=== PATIENT | male | born 1955 | race Caucasian/White ===

== ENCOUNTER 2021-10-22 10:54 | Inpatient (IN) ==
[2021-10-22 11:06] VITALS: BMI 26.8
[2021-10-22 11:08] LABS: ABG BASE EXCESS 6.5 mmol/L (-2.0-2.0); ABG HCO3 28.9 mmol/L (22-26)
--- NOTE | 2021-10-22 11:08 | DR.SOBA ---
HPI Time Seen Time Seen by Provider: 10/22/21 11:08 Primary Care Physician Primary Care Physician: None HPI Comment HPI Comment: PATIENT IS 66YR OLD MALE IN ER WITH INCREASING SOB, GENERALIZED WEAKNESS TIMES 3 WEEKS. TESTED POSITIVE FOR COVID 19 VIRUS 9 DAYS. PATIENT PROGRESSIVELY GETTING WORSE. LOW GRADE FEVER IN ER. Complaints Chief Complaint Doctors Comments: SOB, COUGH, CONGESTION AND GENERALIZED WEAKNESS TIMES 3 WEEKS. COVID POSITIVE 9 DAYS AGO. Chief Complaint:: Pt reports 3 weeks of worsening sxs: sob, cough, weakness, tested Covid+ on 10/13/21 and dx with pna, has not been on abx, initial O2 sats in triage 86%, up to 88%. COVID-19 Coronavirus risk:travel/contact w/high risk person: Yes Has patient experienced Coronavirus symptoms: Yes Coronavirus symptoms experienced: Coughing and Shortness of Breath Reviewed Nurses Notes Reviewed: Yes Source History Provided: Patient Mode of Arrival Mode of Arrival: Wheelchair Timing Onset of Chief Complaint: 10/01/21 Duration Duration: Weeks Context Onset:: At Rest PE Risk Factors:: None History of:: None Currently on:: Neither Prehospital Care:: Injected B2 Modifying Factors Worsens:: Exertion Improves:: Rest Associated Signs and Symptoms Associated Signs and Symptoms: Cough and Nasal Congestion If Chest Pain Quality: Pleuritic Location: Substernal If Cough Cough: Productive and Yellow PMH PMH Past Medical History: Yes Past Medical History: Depression and Dyslipidemia Past Medical History Comment: BPH Past Surgical History: Yes Surgical History: Tonsillectomy Past Surgical History Comment: inguinal hernia repair Family History History of Family Medical Conditions: Yes Social History Alcohol Use: Rarely Do you use any recreational Drugs:: No Lives Where: Home Travel Risk Coronavirus risk:travel/contact w/high risk person: Yes Has patient experienced Coronavirus symptoms: Yes Coronavirus symptoms experienced: Coughing and Shortness of Breath Infectious screening In the last 2 months have you had wt loss of >10#?: NO Have you had fever, night sweats or hemotysis?: No Have you traveled outside the country in the last 6 months?: No Isolation: Droplet ROS Review of Systems Constitutional: See HPI, Fever, Weakness and Fatigue Eyes: No Symptoms Reported and See HPI ENTM: See HPI, Nose Discharge and Nose Congestion Respiratoy: See HPI, Productive Cough and Short of Breath; negative Wheezing Cardiovascular: See HPI and Chest Pain (TIGHTNESS, PLEURITIC.) Gastrointestinal/Abdominal: No Symptoms Reported and See HPI; negative Abdominal Pain, Diarrhea and Vomiting Genitourinary: No Symptoms Reported and See HPI Neurological: See HPI, Headache and Weakness; negative Dizziness Musculoskeletal: No Symptoms Reported, See HPI and Muscle Pain Integumentary: No Symptoms Reported and See HPI; negative Rash and Juandice Hematologic/Lymphatic: No Symptoms Reported and See HPI; negative Easy Bruising Endocrine: No Symptoms Reported and See HPI; negative Increased Thirst and Increased Urine Psychiatric: No Symptoms Reported and See HPI All Other Systems: Reviewed and Negative PE Vital Signs Vitals: Temperature 99.1 F Pulse Rate 80 Respiratory Rate 24 Blood Pressure 123/68 O2 Sat by Pulse Oximetry 95 General Limitations: No Limitations General Appearance: Alert and In No Apparent Distress Head Head Exam: Normal Inspection Eyes Eye exam: Normal Appearance; negative Scleral Icterus and Conjunctival Injection ENT ENT Exam: Normal External Ear Exam; negative Normal Oropharynx and TM's Normal Bilaterally Neck Neck Exam: Normal Inspection and Trachea Midline; negative Tenderness Chest Chest Inspection: Normal Inspection and Symmetric Chest Wall Rise; negative Tend erness Respiratory Respiratory Exam: Normal Lung Sounds Bilat; negative Accessory Muscle Use, Chest Wall Tenderness and Respiratory Distress Respiratory Exam: Bilateral: Rhonchi and Lower: Rhonchi Cardiovascular Cardiovascular Exam: Regular Rate, Normal Rhythm and Normal Heart Sounds; negative Diastolic Murmur Abdominal Exam Abdominal Exam: Normal Inspection, Normal Bowel Sounds and Soft; negative Tenderness Extremities Extremities Exam: Normal Inspection and Normal Capillary Refill Back Back Exam: Normal Inspection; negative (R) CVA Tenderness and (L) CVA Tenderness Neurologic Neurological Exam: Alert and Oriented X3; negative Motor Sensory Deficit Psychiatric Psychiatric Exam: Normal Affect and Normal Mood Skin Skin Exam: Dry MDM Differential Diagnosis Differential Diagnosis: Bronchitis, Pneumonia, Pneumothorax, Respiratory Ins ufficiency, Sinusitis and URI COURSE Treatment Treatment: SEE ORDERS. DUO NEB AND SOLUMEDROL 125MG TV IN ER. LABS AND XRAY DISCUSSED. PATIENT WILL BE ADMITTED FOR FURTHER MANAGEMENT. Reevaluation 1st: Improved (SOB IMPOVING.) Consultation Consultation Comments: DISCUSSED PATIENT WITH DR. BETTS. HE WILL ADMIT PATIENT. Education/Counseling Education/Counseling: Patient Educated On: Diagnosis and Needs for Follow Up ROR Labs Reviewed Laboratory Results Reviewed?: Yes Result Diagrams: 10/26/21 05:31 10/26/21 05:31 Laboratory: 10/22/21 11:20 Blood Blood Culture - Final 10/22/21 11:15 Blood Blood Culture - Final WBC 6.6 X10^3/uL (3.6-10.0) 10/22/21 11:20 RBC 4.37 X10^6/uL (4.7-6.0) L 10/22/21 11:20 Hgb 13.9 g/dL (13.5-18.0) 10/22/21 11:20 Hct 38.5 % (42.0-54.0) L 10/22/21 11:20 MCV 88.2 fL (80.0-100.0) 10/22/21 11:20 MCH 31.9 pg (27.0-34.0) 10/22/21 11:20 MCHC 36.2 g/dL (33.0-35.0) H 10/22/21 11:20 RDW 13.8 % (11.6-16.5) 10/22/21 11:20 Plt Count 314 X10^3/uL (150.0-450.0) 10/22/21 11:20 MPV 7.3 fL (7.4-11.0) L 10/22/21 11:20 Neut % (Auto) 78.3 % (42.0-75.0) H 10/22/21 11:20 Lymph % (Auto) 11.1 % (21.0-51.0) L 10/22/21 11:20 [place] % (Auto) 10.3 % (0.0-13.0) 10/22/21 11:20 Eos % (Auto) 0.0 % (0.9-2.9) L 10/22/21 11:20 Baso % (Auto) 0.3 % (0.2-1.0) 10/22/21 11:20 Neut # (Auto) 5.2 x10^3/uL (2.2-4.8) H 10/22/21 11:20 Lymph # (Auto) 0.7 X10^3/uL (1.3-2.9) L 10/22/21 11:20 [place] # (Auto) 0.7 x10^3/uL (0.3-0.8) 10/22/21 11:20 Eos # (Auto) 0.0 x10^3/uL (0.0-0.2) 10/22/21 11:20 Baso # (Auto) 0.0 X10^3/uL (0.0-0.1) 10/22/21 11:20 Absolute Nucleated RBC 0.2 /100WBC 10/22/21 11:20 D-Dimer 1.34 ug/ml (0.0-0.57) H* 10/22/21 11:20 Sample Site Rbra 10/22/21 11:00 ABG pH 7.550 (7.35-7.45) H 10/22/21 11:00 ABG pCO2 33.0 mmHg (35.0-45.0) L 10/22/21 11:00 ABG pO2 45.0 mmHg (80.0-100.0) L* 10/22/21 11:00 ABG HCO3 28.9 mmol/L (22-26) H 10/22/21 11:00 ABG O2 Saturation 87.0 % (90-100) L 10/22/21 11:00 ABG Base Excess 6.5 mmol/L (-2.0-2.0) H 10/22/21 11:00 Jaspreet Test N/a 10/22/21 11:00 A-a Gradient 63.0 mmHg 10/22/21 11:00 FiO2 21.0 10/22/21 11:00 Blood Gas Comments Pt inna well elj 10/22/21 11:00 Sodium 131 mmol/L (136-145) L 10/22/21 11:20 Corrected Sodium TNP 10/22/21 11:20 Potassium 3.9 mmol/L (3.5-5.1) 10/22/21 11:20 Chloride 95 mmol/L (98-107) L 10/22/21 11:20 Carbon Dioxide 29.0 mmol/L (21-32) 10/22/21 11:20 BUN 17 mg/dL (7-18) 10/22/21 11:20 Creatinine 0.86 mg/dL (0.70-1.30) 10/22/21 11:20 Est GFR (MDRD) Af Amer > 60 (>60) 10/22/21 11:20 Est GFR (MDRD) Non-Af > 60 (>60) 10/22/21 11:20 Glucose 104 mg/dL (65-99) H 10/22/21 11:20 Lactic Acid 1.2 mmol/L (0.4-2.0) 10/22/21 11:20 Calcium 8.4 mg/dL (8.5-10.1) L 10/22/21 11:20 Corrected Calcium 9.6 mg/dL (8.5-10.1) 10/22/21 11:20 Total Bilirubin 0.60 mg/dL (0.2-1.0) 10/22/21 11:20 AST 83 Units/L (15-37) H 10/22/21 11:20 ALT 124 Units/L (12-78) H 10/22/21 11:20 Alkaline Phosphatase 86 Units/L (46-116) 10/22/21 11:20 B-Natriuretic Peptide 28.3 pg/mL (0-79) 10/22/21 11:20 Total Protein 7.1 g/dL (6.4-8.2) 10/22/21 11:20 Albumin 2.5 g/dL (3.4-5.0) L 10/22/21 11:20 Globulin 4.6 g/dL (2.5-4.5) H 10/22/21 11:20 Albumin/Globulin Ratio 0.5 Ratio (1.1-2.1) L 10/22/21 11:20 SARS-CoV-2 (PCR) Positive (NEGATIVE) A 10/22/21 14:19 Influenza Type A (PCR) Negative (NEGATIVE) 10/22/21 14:19 Influenza Type B (PCR) Negative (NEGATIVE) 10/22/21 14:19 RSV (PCR) Negative (NEGATIVE) 10/22/21 14:19 XRAY XRAY Interpreted by: Radiologist (REPORT NOTED AND DISCUSSED WITH PATIENT.) and Self EKG Rate: 84 [place]: Normal Rhythm: NSR Block: None Hypertrophy: None ST: Normal Opioid Opioid Risk Tool Age (Josue box if 16-45): No Total: 0 Total Score Risk Category: Low Risk Copyright: [facility] predicting aberrant behaviors Diagnosis Discharge Problem: Hypoxia, COVID-19 virus infection Pneumonia Qualifiers: Pneumonia type: due to unspecified organism Laterality: bilateral Lung location: lower lobe of lung Qualified Code(s): J18.9 - Pneumonia, unspecified organism Instructions Instructions: How to Use an Incentive Spirometer Home Oxygen Use, Adult Antibiotic Medicine, Adult Hypoxia Prone Position Therapy 10 Things You Can Do to Manage Your COVID-19 Symptoms at Home - [facility] [place] (04/02/2020) Bleeding Precautions When on Anticoagulant Therapy, Adult How to Use a Nebulizer, Adult COVID-19: Quarantine vs. Isolation - [facility] [place] [place] (09/18/2020) You've Been Prescribed an Antibiotic in the Hospital for an Infection - CDC Forms: Excuse From Work or School Precautions for COVID19 [facility] Social Distancing
[2021-10-22 11:46] LABS: BASOPHILS % (AUTO) 0.3 % (0.2-1.0); HEMATOCRIT 38.5 % (42.0-54.0); HEMOGLOBIN 13.9 g/dL (13.5-18.0); LYMPHOCYTES # (AUTO) 0.7 X10^3/uL (1.3-2.9); LYMPHOCYTES % (AUTO) 11.1 % (21.0-51.0); MEAN CORPUSCULAR HEMOGLOBIN 31.9 pg (27.0-34.0); MEAN CORPUSCULAR HGB CONC 36.2 g/dL (33.0-35.0); MEAN CORPUSCULAR VOLUME 88.2 fL (80.0-100.0); MEAN PLATELET VOLUME 7.3 fL (7.4-11.0); MONOCYTES # (AUTO) 0.7 x10^3/uL (0.3-0.8); MONOCYTES % (AUTO) 10.3 % (0.0-13.0); NEUTROPHILS # (AUTO) 5.2 x10^3/uL (2.2-4.8); NEUTROPHILS % (AUTO) 78.3 % (42.0-75.0); RED BLOOD COUNT 4.37 X10^6/uL (4.7-6.0); RED CELL DISTRIBUTION WIDTH 13.8 % (11.6-16.5); WHITE BLOOD COUNT 6.6 X10^3/uL (3.6-10.0)
[2021-10-22 11:55] LABS: ALANINE AMINOTRANSFERASE 124 Units/L (12-78); ALBUMIN 2.5 g/dL (3.4-5.0); ALKALINE PHOSPHATASE 86 Units/L (46-116); ASPARTATE AMINO TRANSFERASE 83 Units/L (15-37); BLOOD UREA NITROGEN 17 mg/dL (7-18); CALCIUM 8.4 mg/dL (8.5-10.1); CHLORIDE 95 mmol/L (98-107); COR CA(FOR HYPOALB) 9.6 mg/dL (8.5-10.1); CREATININE 0.86 mg/dL (0.70-1.30); SODIUM 131 mmol/L (136-145); TOTAL PROTEIN 7.1 g/dL (6.4-8.2); eGFR NON BLACK RACES > 60 (>60)
--- NOTE | 2021-10-22 11:55 | RAD ---
Chest AP portableIndication: DyspneaCOMPARISONNone availableFINDINGSThere is patchy bilateral pulmonary opacities, somewhat peripherally located. Heart size is prominent. There is no pneumothorax. Small effusion difficult to exclude. Scarring seen in the right upper lung versus nodule. Monitor leads obscure detailIMPRESSIONPatchy bilateral peripheral pulmonary opacities could reflect sequela of viral pneumonitis. Other infectious or inflammatory etiologies not excluded. Follow-up to resolution to exclude underlying lesion recommended, particularly given somewhat nodular area in the right upper lungElectronically signed by: MYLES IRWIN (Oct 22, 2021 11:53:44)
[2021-10-22 12:18] LABS: LACTIC ACID 1.2 mmol/L (0.4-2.0)
[2021-10-22] MEDS ORDERED: SOLU-Medrol 125 MG VIAL IVP ONE (12:32)
[2021-10-22] MEDS ORDERED: DUONEB 0.5 MG/3 MG (3 mL) NEB ONE ×2 (12:32→12:55)
[2021-10-22] MEDS ORDERED: NS 100 ML IV 100 ML ONE (12:36)
[2021-10-22] MEDS ORDERED: SOLU-Medrol 125 MG VIAL ONE (12:42)
--- NOTE | 2021-10-22 13:22 | CT ---
HISTORYSOBSTUDYCTA CHESTCOMPARISONChest radiograph from same day.TECHNIQUECTA chest protocol with axial images from the thoracic inlet to upper abdomen with IV contrast. Sagittal and coronal reformats and MIP images were created. Automated exposure control was utilized.FINDINGSThe visualized thyroid gland appears benign. Moderately atherosclerotic normal caliber thoracic aorta. Pulmonary artery is normal in caliber centrally. No filling defect is identified to suggest pulmonary embolism. The heart is normal in size. No pericardial effusion. Conspicuous number of nonenlarged lymph nodes in the mediastinum. Small hiatal hernia. 1.9 cm left renal cyst. Left-sided gynecomastia. There is a hemangioma at L1. No acute osseous abnormality.The trachea and mainstem bronchi appear patent. Moderate bilateral ground-glass opacities in a pattern typical for COVID 19. There are few airspace opacities in the dependent lower lobes. Trace bilateral pleural effusions. No pneumothorax.IMPRESSIONModerate bilateral ground-glass and some airspace opacities in a pattern typical for COVID 19. Negative for PE. Other incidental findings as above.Electronically signed by: Spencer Schmitz (Oct 22, 2021 13:20:54)
[2021-10-22] MEDS ORDERED: LEXAPRO PO SCH (16:32)
[2021-10-22] MEDS ORDERED: CRESTOR TAB 10 MG PO SCH (16:32)
[2021-10-22] MEDS ORDERED: REMDESIVIR 200 MG in NS 250 ML IV 250 ML IV ONE (16:32)
[2021-10-22] MEDS: DUONEB 0.5 MG/3 MG (3 mL) NEB SCH ×2 (16:45→21:05)
[2021-10-22] MEDS ORDERED: LEXAPRO ONE (16:59)
[2021-10-22] MEDS ORDERED: PHARMACY CONSULT - IVERMECTIN XX SCH (17:00)
[2021-10-22 17:02] LABS: BASOPHILS % (AUTO) 0.5 % (0.2-1.0); HEMATOCRIT 37.6 % (42.0-54.0); HEMOGLOBIN 13.6 g/dL (13.5-18.0); LYMPHOCYTES # (AUTO) 0.4 X10^3/uL (1.3-2.9); LYMPHOCYTES % (AUTO) 7.4 % (21.0-51.0); MEAN CORPUSCULAR HEMOGLOBIN 31.9 pg (27.0-34.0); MEAN CORPUSCULAR HGB CONC 36.2 g/dL (33.0-35.0); MEAN CORPUSCULAR VOLUME 88.1 fL (80.0-100.0); MEAN PLATELET VOLUME 7.1 fL (7.4-11.0); MONOCYTES # (AUTO) 0.3 x10^3/uL (0.3-0.8); MONOCYTES % (AUTO) 4.9 % (0.0-13.0); NEUTROPHILS # (AUTO) 5.2 x10^3/uL (2.2-4.8); NEUTROPHILS % (AUTO) 87.2 % (42.0-75.0); RED BLOOD COUNT 4.27 X10^6/uL (4.7-6.0)
[2021-10-22] MEDS: IVERMECTIN PO SCH (17:06)
[2021-10-22 17:10] LABS: ALANINE AMINOTRANSFERASE 143 Units/L (12-78); ALBUMIN 2.5 g/dL (3.4-5.0); ALKALINE PHOSPHATASE 94 Units/L (46-116); ASPARTATE AMINO TRANSFERASE 98 Units/L (15-37); BLOOD UREA NITROGEN 14 mg/dL (7-18); CALCIUM 8.4 mg/dL (8.5-10.1); CARBON DIOXIDE 27.4 mmol/L (21-32); CHLORIDE 96 mmol/L (98-107); COR CA(FOR HYPOALB) 9.6 mg/dL (8.5-10.1); COR NA(FOR HYPERGLY) 134 mmol/L (136-145); CREATININE 0.89 mg/dL (0.70-1.30); SODIUM 133 mmol/L (136-145); TOTAL PROTEIN 7.2 g/dL (6.4-8.2); eGFR NON BLACK RACES > 60 (>60)
[2021-10-22] MEDS ORDERED: NS 250 ML IV 250 ML IV PRN (19:31)
[2021-10-22] MEDS ORDERED: ZOSYN VIAL 3.375 GRAMS IV ONE (19:49)
[2021-10-22] MEDS ORDERED: NS 100 ML IV + SPIKE MINIBAG* 100 ML IV ONE (19:49)
[2021-10-22] MEDS: ZINC SULFATE PO SCH (20:11)
[2021-10-22] MEDS: LUVOX PO SCH (20:11)
[2021-10-22] MEDS: ASCORBIC ACID INJ MULTI-DOSE VIAL 1,500 MG in NS 100 ML IV 100 ML IV SCH (20:11)
[2021-10-22] MEDS: PEPCID TAB 40 MG PO SCH (20:11)
[2021-10-22] MEDS: LOVENOX INJ 30 MG SYR SC SCH (20:12)
[2021-10-22] MEDS: VIBRAMYCIN PO SCH (20:12)
[2021-10-22] MEDS ORDERED: PULMICORT NEB TX 0.5 MG NEB SCH (21:00)
[2021-10-22] MEDS ORDERED: BROVANA IN SCH (21:00)
[2021-10-22] MEDS ORDERED: MELATONIN PO SCH (21:00)
[2021-10-22] MEDS: PERIACTIN TAB 4 MG PO SCH (21:04)
[2021-10-22] MEDS: SOLU-Medrol 125 MG VIAL IVP SCH (21:04)
[2021-10-22] MEDS: ZOSYN VIAL 3.375 GRAMS 3.375 G in NS 100 ML IV + SPIKE MINIBAG* 100 ML IV SCH (21:05)
[2021-10-22] MEDS: PULMICORT NEB TX 0.5 MG NEB SCH (21:05)
[2021-10-23] MEDS: ASCORBIC ACID INJ MULTI-DOSE VIAL 1,500 MG in NS 100 ML IV 100 ML IV SCH ×3 (03:00→15:00)
[2021-10-23 05:30] LABS: ABG BASE EXCESS 3.9 mmol/L (-2.0-2.0); ABG HCO3 27.7 mmol/L (22-26)
[2021-10-23 05:37] LABS: BASOPHILS % (AUTO) 0.3 % (0.2-1.0); HEMATOCRIT 36.1 % (42.0-54.0); HEMOGLOBIN 13.1 g/dL (13.5-18.0); LYMPHOCYTES # (AUTO) 0.5 X10^3/uL (1.3-2.9); MEAN CORPUSCULAR HGB CONC 36.3 g/dL (33.0-35.0); MEAN CORPUSCULAR VOLUME 88.2 fL (80.0-100.0); MEAN PLATELET VOLUME 7.5 fL (7.4-11.0); MONOCYTES # (AUTO) 0.3 x10^3/uL (0.3-0.8); MONOCYTES % (AUTO) 10.3 % (0.0-13.0); NEUTROPHILS # (AUTO) 2.4 x10^3/uL (2.2-4.8); NEUTROPHILS % (AUTO) 74.4 % (42.0-75.0); RED CELL DISTRIBUTION WIDTH 13.7 % (11.6-16.5); WHITE BLOOD COUNT 3.2 X10^3/uL (3.6-10.0)
[2021-10-23 05:47] LABS: ALANINE AMINOTRANSFERASE 149 Units/L (12-78); ALBUMIN 2.2 g/dL (3.4-5.0); ALKALINE PHOSPHATASE 88 Units/L (46-116); ASPARTATE AMINO TRANSFERASE 80 Units/L (15-37); BLOOD UREA NITROGEN 13 mg/dL (7-18); CALCIUM 8.5 mg/dL (8.5-10.1); CARBON DIOXIDE 27.8 mmol/L (21-32); CHLORIDE 103 mmol/L (98-107); COR CA(FOR HYPOALB) 9.9 mg/dL (8.5-10.1); COR NA(FOR HYPERGLY) 141 mmol/L (136-145); CREATININE 0.83 mg/dL (0.70-1.30); SODIUM 139 mmol/L (136-145); TOTAL PROTEIN 6.6 g/dL (6.4-8.2); eGFR NON BLACK RACES > 60 (>60)
[2021-10-23] MEDS: PERIACTIN TAB 4 MG PO SCH ×2 (05:59→14:59)
[2021-10-23] MEDS: ZOSYN VIAL 3.375 GRAMS 3.375 G in NS 100 ML IV + SPIKE MINIBAG* 100 ML IV SCH ×2 (05:59→14:59)
[2021-10-23] MEDS: SOLU-Medrol 125 MG VIAL IVP SCH ×2 (05:59→14:59)
--- NOTE | 2021-10-23 06:40 | RAD ---
HISTORYCOVID+STUDYCHEST, [address] radi[address] and CT chest from 1 day prior.TECHNIQUEAP view of the chestFINDINGSCardiac and mediastinal contours are within normal limits. No significant change in moderate bilateral airspace and interstitial opacities. No definite pleural effusion or pneumothorax.IMPRESSIONNo significant change.Electronically signed by: Spencer Schmitz (Oct 23, 2021 06:39:03)
[2021-10-23 08:14] LABS: ABG ALLEN TEST POS
[2021-10-23] MEDS: DUONEB 0.5 MG/3 MG (3 mL) NEB SCH ×3 (08:20→16:45)
[2021-10-23] MEDS: PULMICORT NEB TX 0.5 MG NEB SCH (08:20)
[2021-10-23] MEDS ORDERED: VITAMIN A PO SCH (09:00)
[2021-10-23] MEDS ORDERED: VITAMIN D (1.25MG) PO SCH (09:00)
[2021-10-23] MEDS: LUVOX PO SCH (09:35)
[2021-10-23] MEDS: VIBRAMYCIN PO SCH (09:35)
[2021-10-23] MEDS: TRICOR TAB 160 MG PO SCH (09:35)
[2021-10-23] MEDS: IVERMECTIN PO SCH (09:35)
[2021-10-23] MEDS: PEPCID TAB 40 MG PO SCH (09:36)
[2021-10-23] MEDS: ZINC SULFATE PO SCH (09:36)
[2021-10-23] MEDS: LOVENOX INJ 30 MG SYR SC SCH (09:36)
--- NOTE | 2021-10-23 11:13 | DR.H&P ---
H&P - History & Physical for Day of: H&P Date: 10/22/21 - Chief Complaint Chief Complaint: COUGH, SHORNESS OF BREATH, WEAKNESS - History of Present Illness History of Present Illness: IS A 66 YEAR OLD WHITE MALE WHO PRESENTED TO THE ER WITH REPORTS OF SHORTNESS OF BREATH, COUGH, WEAKNESS, AND DECREASED OXYGEN SATURATIONS. PATIENT REPORTS TESTING POSITIVE FOR COVID ON 10/13/21. HE REPORTS THAT HIS OXYGEN SATURATIONS AT HOME HAVE DROPPED INTO THE 80s. HIS PMH INCLUDES DEPRESSION, DYSLIPIDEMIA, BPH, AND INGUINAL HERNIA REPAIR. ON ARRIVAL TO THE HOSPITAL, HIS VITALS WERE 99.1-90-19-86%, 137/76. HE WAS PLACED ON NASAL CANNULA AT 6LPM. SATURATIONS INCREASED TO 91%. LABS WERE OBTAINED. WBC 6.6, RBC 4.37, HGB 13.9, HCT 38.5, D-DIMER 1.34, SODIUM 131, POTASSIUM 3.9, BUN 17, CREATININE 0.86, GLUCOSE 104, CALCIUM 8.4, AST 83, ALT 124, ALBUMIN 2.5, GLOBULIN 4.6, CRP 159.50. COVID-19 POSITIVE. INFLUENZA AND RSV NEGATIVE. BLOOD CULTURES WERE SET UP. AN EKG WAS OBTAINED AND REVEALED: SINUS RHYTHM WITH HR 84. A CHEST XRAY WAS OBTAINED AND REVEALED: Patchy bilateral peripheral pulmonary opacities could reflect sequela of viral pneumonitis. Other infectious or inflammatory etiologies not excluded. Follow-up to resolution to exclude underlying lesion recommended, particularly given somewhat nodular area in the right upper lung. A CHEST CTA WAS OBTAINED AND REVEALED: Moderate bilateral ground-glass and some airspace opacities in a pattern typical for COVID 19. Negative for PE. IN THE ER, HE WAS GIVEN A DUONEB X 1, SOLU-MEDROL 125MG IV X 1, REMDESIVIR 200MG IV X 1. HE WAS ADMITTED TO THE HOSPITAL FOR FURTHER EVALUATION AND TREATMENT OF PNEUMONIA DUE TO COVID-19 AND HYPOXIA. HE WAS STARTED ON NORMAL SALINE AT KVO, ZOSYN 3.375G IV TID, LEVAQUIN 500MG IV DAILY, REMDESIVIR 100MG IV DAILY, ASCORBIC ACID 1500MG IV Q6H, DUONEBS QID, PULMICORT NEBS BID, SOLU-MEDROL 80MG IV Q8H, PERIACTIN 8MG PO TID, LOVENOX 30MG SC BID, VITAMIN D 50,000 UNITS PO DAILY, FLUVOXAMINE 50MG PO BID, PEPCID 40MG PO BID, TRICOR 160MG PO DAILY, IVERMECTIN 24MG PO DAILY, ZINC 220MG PO BID. WE PLAN TO FOLLOW UP WITH AM LABS AND CHEST XRAY AND CONTINUE TO MONITOR. TIME SPENT ON CLINICAL ASSESSMENT, REVIEWING LABS AND IMAGING, DECISION MAKING, AND DOCUMENTATION WAS GREATER THAN 45 MINUTES. - Past Medical History Past Medical History: Dyslipidemia, Depression Additional Medical History: BPH - Past Surgical History Surgical History: Tonsillectomy, Other Additional Surgical History: HERNIA REPAIR - Family History Family Medical History: Diabetes Mellitus, [place], Hypertension - Social History Does patient currently use any type of tobacco product: No Have you used tobacco products in the last 12 months: No Type of Tobacco Use: None Does any household member use tobacco: No Alcohol Use: Rarely Drug Use: None - Medications Home Medications: Sulfa (Sulfonamide Antibiotics) [SULFA] Allergy (Verified 10/22/21 11:44) CONTINUE taking the following medications escitalopram oxalate [Lexapro] 10 mg PO ONCE 10/22/21 [History] rosuvastatin [Crestor] 10 mg PO ONCE 10/22/21 [History] tadalafil [Cialis] 5 mg PO ONCE 10/22/21 [History] - Review of Systems Constitutional: Weakness Eyes: No Symptoms Reported ENT: No Symptoms Reported Respiratory: Cough, Shortness of Breath Cardiovascular: No Symptoms Reported Gastrointestinal: No Symptoms Reported Genitourinary: No Symptoms Reported Musculoskeletal: No Symptoms Reported Skin: No Symptoms Reported Neurological: Weakness - Physical Exam Vital Signs: Temperature 97.9 F Pulse Rate 78 Respiratory Rate 27 Blood Pressure 125/75 O2 Sat by Pulse Oximetry 87 Oriented: Normal Eyes: Normal Ear: Normal Nose: Normal Throat: Normal Respiratory: Rhonchi Throughout Cardiovascular: Normal : Normal Auscultation: Bowel Sounds: Normal Palpation: Normal Tenderness: Normal Skin: Normal Musculoskeletal: Normal Psychiatric: Normal Mood Description: Calm Affect: Normal Speech Pattern: Clear - Assessment/Plan (1) Pneumonia due to COVID-19 virus Status: Acute Plan: ADMIT, SUPPLEMENTAL OXYGEN, IV FLUIDS, REMDESIVIR, IV ANTIBIOTICS, IV STEROIDS, NEBULIZER TREATMENTS, IMMUNE SUPPLEMENTS (2) Hypoxia Status: Acute - Allergies Allergies/Adverse Reactions: Allergies Allergy/AdvReac Type Severity Reaction Status Date / Time Sulfa (Sulfonamide Allergy Verified 10/22/21 11:44 Antibiotics) [SULFA]
[2021-10-23] MEDS: LEVAQUIN PREMIX IV 500 MG 500 MG/100 ML BAG IV SCH (12:26)
[2021-10-23] MEDS ORDERED: LEXAPRO ONE (17:05)
[2021-10-23] MEDS ORDERED: CRESTOR TAB 10 MG PO ONE (17:05)
[2021-10-23] MEDS ORDERED: LEXAPRO PO ONE (17:08)
[2021-10-23] MEDS ORDERED: DUONEB 0.5 MG/3 MG (3 mL) NEB ONE (20:55)
[2021-10-23] MEDS ORDERED: PULMICORT NEB TX 0.5 MG NEB ONE (20:55)
[2021-10-23] MEDS ORDERED: PEPCID TAB 40 MG PO ONE (21:00)
[2021-10-23] MEDS ORDERED: ZINC SULFATE PO ONE (21:00)
[2021-10-23] MEDS ORDERED: NS 100 ML IV + SPIKE MINIBAG IV ONE (21:00)
[2021-10-23] MEDS ORDERED: LUVOX PO ONE (21:00)
[2021-10-23] MEDS ORDERED: VITAMIN C PO ONE (21:00)
[2021-10-23] MEDS ORDERED: LOVENOX INJ 30 MG SYR SC ONE (21:00)
[2021-10-23] MEDS ORDERED: ZOSYN VIAL 3.375 GRAMS IV ONE (21:00)
[2021-10-23] MEDS ORDERED: PERIACTIN TAB 4 MG PO ONE (22:00)
[2021-10-23] MEDS ORDERED: SOLU-Medrol 125 MG VIAL IVP ONE (22:00)
[2021-10-24] MEDS ORDERED: VITAMIN A PO SCH (09:00)
[2021-10-24] MEDS ORDERED: DUONEB 0.5 MG/3 MG (3 mL) NEB ONE ×2 (09:20→13:25)
[2021-10-24] MEDS ORDERED: PULMICORT NEB TX 0.5 MG NEB ONE (09:20)
[2021-10-24 13:11] LABS: ALANINE AMINOTRANSFERASE 124 Units/L (12-78); ALBUMIN 2.1 g/dL (3.4-5.0); ALKALINE PHOSPHATASE 74 Units/L (46-116); ASPARTATE AMINO TRANSFERASE 45 Units/L (15-37); BLOOD UREA NITROGEN 13 mg/dL (7-18); CALCIUM 8.3 mg/dL (8.5-10.1); CARBON DIOXIDE 27.2 mmol/L (21-32); CHLORIDE 105 mmol/L (98-107); COR CA(FOR HYPOALB) 9.8 mg/dL (8.5-10.1); COR NA(FOR HYPERGLY) 141 mmol/L (136-145); CREATININE 0.89 mg/dL (0.70-1.30); SODIUM 139 mmol/L (136-145); TOTAL PROTEIN 6.1 g/dL (6.4-8.2); eGFR NON BLACK RACES > 60 (>60)
[2021-10-24 13:33] LABS: WHITE BLOOD COUNT 12.2 X10^3/uL (3.6-10.0)
[2021-10-24 13:34] LABS: BASOPHILS % (AUTO) 0.2 % (0.2-1.0); HEMATOCRIT 34.6 % (42.0-54.0); HEMOGLOBIN 12.2 g/dL (13.5-18.0); LYMPHOCYTES # (AUTO) 0.7 X10^3/uL (1.3-2.9); LYMPHOCYTES % (AUTO) 5.7 % (21.0-51.0); MEAN CORPUSCULAR HEMOGLOBIN 30.8 pg (27.0-34.0); MEAN CORPUSCULAR HGB CONC 35.1 g/dL (33.0-35.0); MEAN CORPUSCULAR VOLUME 87.8 fL (80.0-100.0); MEAN PLATELET VOLUME 7.9 fL (7.4-11.0); MONOCYTES # (AUTO) 0.7 x10^3/uL (0.3-0.8); MONOCYTES % (AUTO) 5.4 % (0.0-13.0); NEUTROPHILS # (AUTO) 10.8 x10^3/uL (2.2-4.8); NEUTROPHILS % (AUTO) 88.7 % (42.0-75.0); RED BLOOD COUNT 3.95 X10^6/uL (4.7-6.0); RED CELL DISTRIBUTION WIDTH 13.8 % (11.6-16.5)
[2021-10-24] MEDS: ASCORBIC ACID INJ MULTI-DOSE VIAL 1,500 MG in NS 100 ML IV 100 ML IV SCH ×5 (14:16→20:32)
[2021-10-24] MEDS: PERIACTIN TAB 4 MG PO SCH ×4 (14:16→21:40)
[2021-10-24] MEDS: SOLU-Medrol 125 MG VIAL IVP SCH ×3 (14:17→21:40)
[2021-10-24] MEDS: ZOSYN VIAL 3.375 GRAMS 3.375 G in NS 100 ML IV + SPIKE MINIBAG* 100 ML IV SCH ×4 (14:17→21:40)
[2021-10-24] MEDS ORDERED: AYR NASAL DROPS PRN (14:18)
--- NOTE | 2021-10-24 14:32 | RAD ---
HISTORYFollow-up COVID-19STUDYChest AP [id number]/21/2022FINDINGSHear t size is normal. Zora are normal. Lungs are mildly hyperinflated. Diffuse bilateral interstitial and peripheral upper and lower lobe infiltrates are unchanged considering a difference in film technique. No pleural effusion or pneumothorax is identified. Bony thorax is unremarkable.IMPRESSIONNo significant change from the prior examinationElectronically signed by: ANIKET BATES (Oct 24, 2021 14:30:23)
[2021-10-24] MEDS: PEPCID TAB 40 MG PO SCH ×3 (15:56→20:33)
[2021-10-24] MEDS: LUVOX PO SCH ×3 (15:56→20:33)
[2021-10-24] MEDS: LOVENOX INJ 30 MG SYR SC SCH ×3 (15:56→20:32)
[2021-10-24] MEDS: ZINC SULFATE PO SCH ×3 (16:23→20:32)
[2021-10-24] MEDS: IVERMECTIN PO SCH (16:25)
[2021-10-24] MEDS: LEVAQUIN PREMIX IV 500 MG 500 MG/100 ML BAG IV SCH (16:25)
[2021-10-24] MEDS: LEXAPRO PO SCH (16:25)
[2021-10-24] MEDS: VITAMIN D3 125 mcg (5,000 UNITS) PO SCH (16:26)
[2021-10-24] MEDS: TRICOR TAB 160 MG PO SCH (16:26)
--- NOTE | 2021-10-24 16:32 | PCM.PROG ---
Progress Note Progress Note for Day of Date of Exam: 10/24/21 Subjective Subjective: Patient reports he is feeling a little better but still having SOB. No new problems overnight. Hb 122, K 3.4, Na 139, Cr 0.89, GLU 173, WBC 12.2. Past Medical Family Social History Past Med/Fam/Surg Hx: No changes since H&P Allergies: Allergies Sulfa (Sulfonamide Antibiotics) [SULFA] Allergy (Verified 10/22/21 11:44) Review of Systems ROS: No change since H&P Vital Signs and I&O's Vital Signs: Temperature 97.7 F Pulse Rate 84 Respiratory Rate 19 Blood Pressure 116/59 O2 Sat by Pulse Oximetry 89 Intake and Output: Intake & Output 10/22/21 10/23/21 10/24/21 10/25/21 11:59 11:59 11:59 11:59 Intake Total 1050 / 1050 800 / 800 Output Total 800 / 800 Balance 250 / 250 800 / 800 Physical Exam Oriented: Normal Eyes: Normal Ear: Normal Nose: Normal Throat: Normal Respiratory: Generalized, Wheezes and Rhonchi Cardiovascular: Normal : Normal Auscultation: Bowel Sounds: Normal Tenderness: Normal Skin: Normal Musculoskeletal: Normal Psychiatric: Normal Mood Description: Calm Affect: Normal Speech Pattern: Clear Laboratory and Diagnostics Result Diagrams: 10/24/21 04:54 10/24/21 04:54 Labs: 10/22/21 11:20 Blood Blood Culture - Preliminary 10/22/21 11:15 Blood Blood Culture - Preliminary Laboratory WBC 12.2 X10^3/uL (3.6-10.0) H D 10/24/21 04:54 RBC 3.95 X10^6/uL (4.7-6.0) L 10/24/21 04:54 Hgb 12.2 g/dL (13.5-18.0) L 10/24/21 04:54 Hct 34.6 % (42.0-54.0) L 10/24/21 04:54 MCV 87.8 fL (80.0-100.0) 10/24/21 04:54 MCH 30.8 pg (27.0-34.0) 10/24/21 04:54 MCHC 35.1 g/dL (33.0-35.0) H 10/24/21 04:54 RDW 13.8 % (11.6-16.5) 10/24/21 04:54 Plt Count 425 X10^3/uL (150.0-450.0) 10/24/21 04:54 MPV 7.9 fL (7.4-11.0) 10/24/21 04:54 Neut % (Auto) 88.7 % (42.0-75.0) H 10/24/21 04:54 Lymph % (Auto) 5.7 % (21.0-51.0) L 10/24/21 04:54 [place] % (Auto) 5.4 % (0.0-13.0) 10/24/21 04:54 Eos % (Auto) 0.0 % (0.9-2.9) L 10/24/21 04:54 Baso % (Auto) 0.2 % (0.2-1.0) 10/24/21 04:54 Neut # (Auto) 10.8 x10^3/uL (2.2-4.8) H 10/24/21 04:54 Lymph # (Auto) 0.7 X10^3/uL (1.3-2.9) L 10/24/21 04:54 [place] # (Auto) 0.7 x10^3/uL (0.3-0.8) 10/24/21 04:54 Eos # (Auto) 0.0 x10^3/uL (0.0-0.2) 10/24/21 04:54 Baso # (Auto) 0.0 X10^3/uL (0.0-0.1) 10/24/21 04:54 Absolute Nucleated RBC 0.0 /100WBC 10/24/21 04:54 D-Dimer 1.34 ug/ml (0.0-0.57) H* 10/22/21 11:20 Sample Site Rr 10/23/21 05:28 ABG pH 7.470 (7.35-7.45) H 10/23/21 05:28 ABG pCO2 38.0 mmHg (35.0-45.0) 10/23/21 05:28 ABG pO2 116.0 mmHg (80.0-100.0) H 10/23/21 05:28 ABG HCO3 27.7 mmol/L (22-26) H 10/23/21 05:28 ABG O2 Saturation 99.0 % (90-100) 10/23/21 05:28 ABG Base Excess 3.9 mmol/L (-2.0-2.0) H 10/23/21 05:28 Jaspreet Test Pos 10/23/21 05:28 A-a Gradient 36.0 mmHg 10/23/21 05:28 FiO2 28.0 10/23/21 05:28 Blood Gas Comments Pt inna mcfarland 10/23/21 05:28 Sodium 139 mmol/L (136-145) 10/24/21 04:54 Corrected Sodium 141 mmol/L (136-145) 10/24/21 04:54 Potassium 3.4 mmol/L (3.5-5.1) L 10/24/21 04:54 Chloride 105 mmol/L (98-107) 10/24/21 04:54 Carbon Dioxide 27.2 mmol/L (21-32) 10/24/21 04:54 BUN 13 mg/dL (7-18) 10/24/21 04:54 Creatinine 0.89 mg/dL (0.70-1.30) 10/24/21 04:54 Est GFR (MDRD) Af Amer > 60 (>60) 10/24/21 04:54 Est GFR (MDRD) Non-Af > 60 (>60) 10/24/21 04:54 Glucose 173 mg/dL (65-99) H 10/24/21 04:54 Lactic Acid 1.2 mmol/L (0.4-2.0) 10/22/21 11:20 Calcium 8.3 mg/dL (8.5-10.1) L 10/24/21 04:54 Corrected Calcium 9.8 mg/dL (8.5-10.1) 10/24/21 04:54 Total Bilirubin 0.30 mg/dL (0.2-1.0) 10/24/21 04:54 AST 45 Units/L (15-37) H 10/24/21 04:54 ALT 124 Units/L (12-78) H 10/24/21 04:54 Alkaline Phosphatase 74 Units/L (46-116) 10/24/21 04:54 C-Reactive Protein 72.40 mg/L (0-3.0) H 10/24/21 04:54 B-Natriuretic Peptide 135 pg/mL (0-79) H 10/24/21 04:54 Total Protein 6.1 g/dL (6.4-8.2) L 10/24/21 04:54 Albumin 2.1 g/dL (3.4-5.0) L 10/24/21 04:54 Globulin 4.0 g/dL (2.5-4.5) 10/24/21 04:54 Albumin/Globulin Ratio 0.5 Ratio (1.1-2.1) L 10/24/21 04:54 SARS-CoV-2 (PCR) Positive (NEGATIVE) A 10/22/21 14:19 Influenza Type A (PCR) Negative (NEGATIVE) 10/22/21 14:19 Influenza Type B (PCR) Negative (NEGATIVE) 10/22/21 14:19 RSV (PCR) Negative (NEGATIVE) 10/22/21 14:19 Radiology Reviewed: Yes Plan (1) Pneumonia due to COVID-19 virus: Status: Acute Narrative Support Text: Improving slowly. Plan: ADMIT, SUPPLEMENTAL OXYGEN, IV FLUIDS, REMDESIVIR, IV ANTIBIOTICS, IV STEROIDS, NEBULIZER TREATMENTS, IMMUNE SUPPLEMENTS (2) Hypoxia: Status: Acute Narrative Support Text: 89% on 3L NC Plan: Continue current Rx.
[2021-10-24] MEDS: DUONEB 0.5 MG/3 MG (3 mL) NEB SCH ×2 (17:45→21:21)
[2021-10-24 18:16] LABS: ABG ALLEN TEST POS; ABG BASE EXCESS 5.5 mmol/L (-2.0-2.0); ABG HCO3 28.7 mmol/L (22-26)
[2021-10-24] MEDS: PULMICORT NEB TX 0.5 MG NEB SCH (21:21)
[2021-10-25] MEDS: ASCORBIC ACID INJ MULTI-DOSE VIAL 1,500 MG in NS 100 ML IV 100 ML IV SCH ×4 (03:13→20:28)
[2021-10-25 05:42] LABS: BASOPHILS % (AUTO) 0.1 % (0.2-1.0); HEMATOCRIT 34.8 % (42.0-54.0); HEMOGLOBIN 12.2 g/dL (13.5-18.0); LYMPHOCYTES # (AUTO) 0.5 X10^3/uL (1.3-2.9); LYMPHOCYTES % (AUTO) 4.3 % (21.0-51.0); MEAN CORPUSCULAR HEMOGLOBIN 30.9 pg (27.0-34.0); MEAN CORPUSCULAR HGB CONC 35.1 g/dL (33.0-35.0); MEAN PLATELET VOLUME 7.3 fL (7.4-11.0); MONOCYTES # (AUTO) 0.5 x10^3/uL (0.3-0.8); MONOCYTES % (AUTO) 4.7 % (0.0-13.0); NEUTROPHILS # (AUTO) 9.9 x10^3/uL (2.2-4.8); NEUTROPHILS % (AUTO) 90.9 % (42.0-75.0); RED BLOOD COUNT 3.95 X10^6/uL (4.7-6.0); WHITE BLOOD COUNT 10.9 X10^3/uL (3.6-10.0)
--- NOTE | 2021-10-25 05:42 | RAD ---
PROCEDURE: Chest X-ray 1 View .HISTORY: Dyspnea and COVID-19 pneumonia with hypoxia.TECHNIQUE: AP portable done at 5:40 a.m..COMPARISON: 10/24/2021.TECHNICAL QUALITY: Satisfactory .FINDINGS:Unremarkable cardio mediastinal silhouette and normal central vascularity.Continued bilateral peripheral pneumonia similar to previous study with no pleural fluid or pneumothorax.IMPRESSION:Unchanged bilateral pneumonia.Electronically signed by: Tate Goodrich (Oct 25, 2021 05:41:40)
[2021-10-25 05:48] LABS: ABG BASE EXCESS 7.8 mmol/L (-2.0-2.0)
[2021-10-25] MEDS: SOLU-Medrol 125 MG VIAL IVP SCH ×3 (05:51→21:09)
[2021-10-25] MEDS: PERIACTIN TAB 4 MG PO SCH ×3 (05:51→21:09)
[2021-10-25] MEDS: ZOSYN VIAL 3.375 GRAMS 3.375 G in NS 100 ML IV + SPIKE MINIBAG* 100 ML IV SCH ×3 (05:52→21:09)
[2021-10-25 05:57] LABS: ALANINE AMINOTRANSFERASE 97 Units/L (12-78); ALBUMIN 2.1 g/dL (3.4-5.0); ALKALINE PHOSPHATASE 68 Units/L (46-116); ASPARTATE AMINO TRANSFERASE 27 Units/L (15-37); BLOOD UREA NITROGEN 12 mg/dL (7-18); CALCIUM 7.9 mg/dL (8.5-10.1); CARBON DIOXIDE 27.6 mmol/L (21-32); CHLORIDE 105 mmol/L (98-107); COR CA(FOR HYPOALB) 9.4 mg/dL (8.5-10.1); COR NA(FOR HYPERGLY) 142 mmol/L (136-145); CREATININE 0.87 mg/dL (0.70-1.30); MAGNESIUM 2.2 mg/dL (1.7-2.9); SODIUM 140 mmol/L (136-145); eGFR NON BLACK RACES > 60 (>60)
[2021-10-25] MEDS ORDERED: KLOR-CON PO PRN (06:09)
[2021-10-25] MEDS ORDERED: K-DUR TAB 20 MEQ PO ONE (06:12)
[2021-10-25] MEDS: K-DUR TAB 20 MEQ PO PRN ×2 (06:15→14:27)
[2021-10-25 07:11] LABS: PLATELET MORPHOLOGY COMMENT NORMAL (NORMAL)
[2021-10-25] MEDS: PULMICORT NEB TX 0.5 MG NEB SCH ×2 (09:03→20:25)
[2021-10-25] MEDS: DUONEB 0.5 MG/3 MG (3 mL) NEB SCH ×4 (09:03→20:25)
[2021-10-25] MEDS ORDERED: LEXAPRO ONE (09:42)
[2021-10-25] MEDS: PEPCID TAB 40 MG PO SCH ×2 (10:00→20:29)
[2021-10-25] MEDS: ZINC SULFATE PO SCH ×2 (10:00→20:28)
[2021-10-25] MEDS: VITAMIN D3 125 mcg (5,000 UNITS) PO SCH (10:00)
[2021-10-25] MEDS: LEVAQUIN PREMIX IV 500 MG 500 MG/100 ML BAG IV SCH (10:00)
[2021-10-25] MEDS: IVERMECTIN PO SCH (10:00)
[2021-10-25] MEDS: TRICOR TAB 160 MG PO SCH (10:00)
[2021-10-25] MEDS: LEXAPRO PO SCH (10:00)
[2021-10-25] MEDS: LUVOX PO SCH ×2 (10:23→20:28)
[2021-10-25] MEDS: LOVENOX INJ 30 MG SYR SC SCH ×2 (10:24→20:28)
[2021-10-25] MEDS ORDERED: LASIX IVP ONE (11:11)
[2021-10-25 14:34] LABS: ABG ALLEN TEST POS
--- NOTE | 2021-10-25 16:25 | PCM.PROG ---
Progress Note Progress Note for Day of Date of Exam: 10/25/21 Subjective Subjective: Patient reports he is feeling a little better this am. Breathing easier today. Past Medical Family Social History Past Med/Fam/Surg Hx: No changes since H&P Allergies: Allergies Sulfa (Sulfonamide Antibiotics) [SULFA] Allergy (Verified 10/22/21 11:44) Review of Systems ROS: No change since H&P Vital Signs and I&O's Vital Signs: Temperature 98.0 F Pulse Rate 74 Respiratory Rate 15 Blood Pressure 117/73 O2 Sat by Pulse Oximetry 91 Intake and Output: Intake & Output 10/23/21 10/24/21 10/25/21 10/26/21 11:59 11:59 11:59 11:59 Intake Total 1050 / 1050 2011 580 / 580 Output Total 800 / 800 Balance 250 / 250 2011 580 / 580 Physical Exam Oriented: Normal Eyes: Normal Ear: Normal Nose: Normal Throat: Normal Respiratory: Generalized, Wheezes and Rhonchi Cardiovascular: Normal : Normal Auscultation: Bowel Sounds: Normal Tenderness: Normal Skin: Normal Musculoskeletal: Normal Psychiatric: Normal Mood Description: Calm Affect: Normal Speech Pattern: Clear and Appropriate Laboratory and Diagnostics Result Diagrams: 10/25/21 05:12 10/25/21 10:20 Labs: 10/22/21 11:20 Blood Blood Culture - Preliminary 10/22/21 11:15 Blood Blood Culture - Preliminary Laboratory WBC 10.9 X10^3/uL (3.6-10.0) H 10/25/21 05:12 RBC 3.95 X10^6/uL (4.7-6.0) L 10/25/21 05:12 Hgb 12.2 g/dL (13.5-18.0) L 10/25/21 05:12 Hct 34.8 % (42.0-54.0) L 10/25/21 05:12 MCV 88.0 fL (80.0-100.0) 10/25/21 05:12 MCH 30.9 pg (27.0-34.0) 10/25/21 05:12 MCHC 35.1 g/dL (33.0-35.0) H 10/25/21 05:12 RDW 14.0 % (11.6-16.5) 10/25/21 05:12 Plt Count 440 X10^3/uL (150.0-450.0) 10/25/21 05:12 Plt Count Comment Adequate (ADEQUATE) 10/25/21 05:12 MPV 7.3 fL (7.4-11.0) L 10/25/21 05:12 Neut % (Auto) 90.9 % (42.0-75.0) H 10/25/21 05:12 Lymph % (Auto) 4.3 % (21.0-51.0) L 10/25/21 05:12 Treasure % (Auto) 4.7 % (0.0-13.0) 10/25/21 05:12 Eos % (Auto) 0.0 % (0.9-2.9) L 10/25/21 05:12 Baso % (Auto) 0.1 % (0.2-1.0) L 10/25/21 05:12 Neut # (Auto) 9.9 x10^3/uL (2.2-4.8) H 10/25/21 05:12 Lymph # (Auto) 0.5 X10^3/uL (1.3-2.9) L 10/25/21 05:12 Treasure # (Auto) 0.5 x10^3/uL (0.3-0.8) 10/25/21 05:12 Eos # (Auto) 0.0 x10^3/uL (0.0-0.2) 10/25/21 05:12 Baso # (Auto) 0.0 X10^3/uL (0.0-0.1) 10/25/21 05:12 Absolute Nucleated RBC 0.1 /100WBC 10/25/21 05:12 Total Counted 100 10/25/21 05:12 Neutrophils % (Manual) 93 % (39-76) H 10/25/21 05:12 Lymphocytes % (Manual) 5 % (13-43) L 10/25/21 05:12 Monocytes % (Manual) 2 % (4-9) L 10/25/21 05:12 Plt Morphology Comment Normal (NORMAL) 10/25/21 05:12 RBC Morphology Normal (NORMAL) 10/25/21 05:12 D-Dimer 1.34 ug/ml (0.0-0.57) H* 10/22/21 11:20 Sample Site Rr 10/25/21 05:27 ABG pH 7.490 (7.35-7.45) H 10/25/21 05:27 ABG pCO2 42.0 mmHg (35.0-45.0) 10/25/21 05:27 ABG pO2 66.0 mmHg (80.0-100.0) L 10/25/21 05:27 ABG HCO3 32.0 mmol/L (22-26) H* 10/25/21 05:27 ABG O2 Saturation 94.0 % (90-100) 10/25/21 05:27 ABG Base Excess 7.8 mmol/L (-2.0-2.0) H 10/25/21 05:27 Jaspreet Test Pos 10/25/21 05:27 A-a Gradient 81.0 mmHg 10/25/21 05:27 FiO2 28.0 10/25/21 05:27 Blood Gas Comments Srinivasan well kh cb 10/25/21 05:27 Sodium 140 mmol/L (136-145) 10/25/21 05:12 Corrected Sodium 142 mmol/L (136-145) 10/25/21 05:12 Potassium 3.4 mmol/L (3.5-5.1) L 10/25/21 10:20 Chloride 105 mmol/L (98-107) 10/25/21 05:12 Carbon Dioxide 27.6 mmol/L (21-32) 10/25/21 05:12 BUN 12 mg/dL (7-18) 10/25/21 05:12 Creatinine 0.87 mg/dL (0.70-1.30) 10/25/21 05:12 Est GFR (MDRD) Af Amer > 60 (>60) 10/25/21 05:12 Est GFR (MDRD) Non-Af > 60 (>60) 10/25/21 05:12 Glucose 182 mg/dL (65-99) H 10/25/21 05:12 Lactic Acid 1.2 mmol/L (0.4-2.0) 10/22/21 11:20 Calcium 7.9 mg/dL (8.5-10.1) L 10/25/21 05:12 Corrected Calcium 9.4 mg/dL (8.5-10.1) 10/25/21 05:12 Magnesium 2.2 mg/dL (1.7-2.9) 10/25/21 05:12 Total Bilirubin 0.50 mg/dL (0.2-1.0) 10/25/21 05:12 AST 27 Units/L (15-37) 10/25/21 05:12 ALT 97 Units/L (12-78) H 10/25/21 05:12 Alkaline Phosphatase 68 Units/L (46-116) 10/25/21 05:12 C-Reactive Protein 35.10 mg/L (0-3.0) H 10/25/21 05:12 B-Natriuretic Peptide 263 pg/mL (0-79) H 10/25/21 05:12 Total Protein 6.0 g/dL (6.4-8.2) L 10/25/21 05:12 Albumin 2.1 g/dL (3.4-5.0) L 10/25/21 05:12 Globulin 3.9 g/dL (2.5-4.5) 10/25/21 05:12 Albumin/Globulin Ratio 0.5 Ratio (1.1-2.1) L 10/25/21 05:12 SARS-CoV-2 (PCR) Positive (NEGATIVE) A 10/22/21 14:19 Influenza Type A (PCR) Negative (NEGATIVE) 10/22/21 14:19 Influenza Type B (PCR) Negative (NEGATIVE) 10/22/21 14:19 RSV (PCR) Negative (NEGATIVE) 10/22/21 14:19 Radiology Reviewed: Yes Plan (1) Pneumonia due to COVID-19 virus: Status: Acute Narrative Support Text: Improved since yesteray. Improved air-entry. Plan: ADMIT, SUPPLEMENTAL OXYGEN, IV FLUIDS, REMDESIVIR, IV ANTIBIOTICS, IV STEROIDS, NEBULIZER TREATMENTS, IMMUNE SUPPLEMENTS (2) Hypoxia: Status: Acute Plan: Continue current Rx.
[2021-10-26] MEDS: ASCORBIC ACID INJ MULTI-DOSE VIAL 1,500 MG in NS 100 ML IV 100 ML IV SCH ×2 (03:06→08:59)
[2021-10-26 05:20] LABS: ABG BASE EXCESS 11.9 mmol/L (-2.0-2.0)
[2021-10-26 05:21] LABS: ABG ALLEN TEST POS; ABG HCO3 35.9 mmol/L (22-26)
[2021-10-26 05:31] VITALS: BP 133/66
[2021-10-26] MEDS: ZOSYN VIAL 3.375 GRAMS 3.375 G in NS 100 ML IV + SPIKE MINIBAG* 100 ML IV SCH (06:01)
[2021-10-26] MEDS: SOLU-Medrol 125 MG VIAL IVP SCH (06:01)
[2021-10-26] MEDS: PERIACTIN TAB 4 MG PO SCH (06:01)
[2021-10-26 06:10] LABS: BLOOD UREA NITROGEN 16 mg/dL (7-18); CARBON DIOXIDE 29.3 mmol/L (21-32); CHLORIDE 103 mmol/L (98-107); COR NA(FOR HYPERGLY) 142 mmol/L (136-145); CREATININE 0.87 mg/dL (0.70-1.30); SODIUM 140 mmol/L (136-145); eGFR NON BLACK RACES > 60 (>60)
[2021-10-26 06:14] LABS: BASOPHILS % (AUTO) 0.2 % (0.2-1.0); HEMOGLOBIN 12.4 g/dL (13.5-18.0); LYMPHOCYTES # (AUTO) 0.6 X10^3/uL (1.3-2.9); LYMPHOCYTES % (AUTO) 6.9 % (21.0-51.0); MEAN CORPUSCULAR HEMOGLOBIN 31.1 pg (27.0-34.0); MEAN CORPUSCULAR HGB CONC 35.4 g/dL (33.0-35.0); MEAN CORPUSCULAR VOLUME 87.9 fL (80.0-100.0); MEAN PLATELET VOLUME 7.5 fL (7.4-11.0); MONOCYTES # (AUTO) 0.5 x10^3/uL (0.3-0.8); MONOCYTES % (AUTO) 5.8 % (0.0-13.0); NEUTROPHILS # (AUTO) 7.7 x10^3/uL (2.2-4.8); NEUTROPHILS % (AUTO) 87.1 % (42.0-75.0); RED BLOOD COUNT 3.98 X10^6/uL (4.7-6.0); RED CELL DISTRIBUTION WIDTH 13.9 % (11.6-16.5); WHITE BLOOD COUNT 8.9 X10^3/uL (3.6-10.0)
[2021-10-26] MEDS: K-DUR TAB 20 MEQ PO PRN (06:19)
[2021-10-26 06:30] LABS: ALANINE AMINOTRANSFERASE 118 Units/L (12-78); ALBUMIN 2.1 g/dL (3.4-5.0); ALKALINE PHOSPHATASE 67 Units/L (46-116); ASPARTATE AMINO TRANSFERASE 42 Units/L (15-37); COR CA(FOR HYPOALB) 9.5 mg/dL (8.5-10.1); TOTAL PROTEIN 5.8 g/dL (6.4-8.2)
--- NOTE | 2021-10-26 07:01 | RAD ---
HISTORYSOBSTUDYCHEST, 1 [id number]/2022.TECHNIQUEAP view of the chestFINDINGSCardiac and mediastinal contours are within normal limits. No significant change in bilateral airspace and interstitial opacities. No definite pleural effusion or pneumothorax.IMPRESSIONNo significant change.Electronically signed by: Spencer Schmitz (Oct 26, 2021 06:59:35)
[2021-10-26] MEDS ORDERED: LEXAPRO ONE (08:55)
[2021-10-26] MEDS: LEVAQUIN PREMIX IV 500 MG 500 MG/100 ML BAG IV SCH (08:59)
[2021-10-26] MEDS: ZINC SULFATE PO SCH (08:59)
[2021-10-26] MEDS: IVERMECTIN PO SCH (09:00)
[2021-10-26] MEDS: TRICOR TAB 160 MG PO SCH (09:00)
[2021-10-26] MEDS: LEXAPRO PO SCH (09:00)
[2021-10-26] MEDS: LUVOX PO SCH (09:00)
[2021-10-26] MEDS: VITAMIN D3 125 mcg (5,000 UNITS) PO SCH (09:00)
[2021-10-26] MEDS: LOVENOX INJ 30 MG SYR SC SCH (09:01)
[2021-10-26] MEDS: PEPCID TAB 40 MG PO SCH (09:01)
[2021-10-26] MEDS: DUONEB 0.5 MG/3 MG (3 mL) NEB SCH (09:45)
[2021-10-26] MEDS: PULMICORT NEB TX 0.5 MG NEB SCH (09:45)
== END 2021-10-26 15:07 | disposition home or self-care (01) | DRG 177 ==
LOC: ER 10:54 → ICU 14:56
PROVIDERS: ADMIT Internal Medicine; ATTEND Internal Medicine